=== PATIENT | male | born 1955 | race Caucasian/White ===

== ENCOUNTER 2022-09-03 21:34 | Emergency (ER) | payer OTHER ==
[2022-09-03] MEDS ORDERED: Ondansetron 4 MG Tab.DIS PO ONE (21:35)
[2022-09-03] MEDS: HYDROmorphone 1 MG/ML Syringe IVPUSH ONE (22:05)
[2022-09-03] MEDS: Ondansetron 4 MG/2 ML SDV IVPUSH ONE (22:05)
[2022-09-03 22:20] LABS: ANION GAP 11.7 mEq/L (7-13); CHLORIDE,CL 106 mmol/L (98-107); SODIUM,NA 142 mmol/L (136-145)
[2022-09-03 22:26] LABS: ESTIMATED GFR 60 mL/min (>=60)
[2022-09-03] MEDS ORDERED: Iopamidol 612 MG/ML 100 ML Bottle IVPUSH ONE (22:38)
[2022-09-03 23:16] LABS: CORONAVIRUS COVID-19 NAA NEGATIVE (NEGATIVE); RESPIRATORY SYNCYTIAL VIR NAA NEGATIVE (NEGATIVE)
[2022-09-04] MEDS: Ondansetron 4 MG Tab.DIS ONE (00:07)
== END 2022-09-04 00:22 | disposition home or self-care (01) ==
LOC: DL.ED 21:34
DX: K80.71 Calculus of gallbladder and bile duct without cholecystitis with obstruction (principal); N20.0 Calculus of kidney; K57.32 Diverticulitis of large intestine without perforation or abscess without bleeding; M51.36 Other intervertebral disc degeneration, lumbar region; Z88.1 Allergy status to other antibiotic agents; Z79.899 Other long term (current) drug therapy; Z20.822 Contact with and (suspected) exposure to COVID-19
CPT/HCPCS: 0241U; 36415; 71045; 74177; 80053; 82150; 83605; 83690; 84484; 85025; 86140; 93005; 93010; 96374; 96375; 99284; 99285-25; A9270-GY; J1170; J2405

== ENCOUNTER 2025-08-06 08:03 | Emergency (ER) | payer OTHER ==
[2025-08-06] MEDS ORDERED: fentaNYL 100 MCG/2 ML SDV IVPUSH PRN (08:24)
[2025-08-06] MEDS: Ketorolac 30 MG/ML SDV IVPUSH ONE (08:32)
[2025-08-06] MEDS: Ondansetron 4 MG/2 ML SDV IVPUSH ONE (08:33)
[2025-08-06 08:34] LABS: BASOPHILS PERCENT AUTO 0.6 % (0.0-1.0); EOSINOPHILS PERCENT AUTO 0.6 % (1.0-3.0); LYMPHOCYTES PERCENT AUTO 17.1 % (20.5-50.1); MONOCYTES PERCENT AUTO 6.5 % (2-8); NEUTROPHILS PERCENT AUTO 75.2 % (42.2-75.2); PLATELET COUNT,PLT 156 10^3/uL (150-450); RED BLOOD CELL COUNT 5.29 10^6/uL (4.6-6.2); WHITE BLOOD CELL COUNT,WBC 6.3 10^3/uL (5.0-10.0)
[2025-08-06 08:45] LABS: A/G RATIO 0.9; ALANINE AMINOTRANSFERASE,ALT 30.0 U/L (16-63); ASPARTATE AMNIOTRANSFERASE,AST 22.0 U/L (15-37); BILIRUBIN TOTAL 0.5 mg/dL (0.2-1.0); BLOOD UREA NITROGEN,BUN 14.0 mg/dL (7-18); CARBON DIOXIDE,CO2 28.0 mmol/L (21-32); CHLORIDE,CL 104.0 mmol/L (98-107); CREATININE 1.63 mg/dL (0.70-1.30); EST CRCL DRUG DOSING (CG) 39.43 mL/min; ESTIMATED GFR 45.0 mL/min (>=60); GLUCOSE RANDOM 210.0 mg/dL (70-99); POTASSIUM,K 4.0 mmol/L (3.5-5.1); PROTEIN TOTAL,TP 8.1 g/dL (6.4-8.2); SODIUM,NA 142.0 mmol/L (136-145)
[2025-08-06 08:47] LABS: LACTIC ACID 2.8 mmol/L (0.4-2.0)
[2025-08-06 09:21] LABS: APPEARANCE,URINE CLEAR (CLEAR); GLUCOSE,URINE NEGATIVE (NEGATIVE); OCCULT BLOOD,URINE MODERATE (NEGATIVE)
[2025-08-06 09:30] LABS: EPITHELIAL CELLS,URINE FEW /HPF (NOT SEEN)
== END 2025-08-06 10:42 | disposition home or self-care (01) ==
LOC: DL.ED 08:03
DX: N23 Unspecified renal colic (principal); I10 Essential (primary) hypertension; Z88.1 Allergy status to other antibiotic agents
CPT/HCPCS: 36415; 74176; 80053; 81001; 83605; 83735; 84484; 85025; 93005; 96361; 96374; 96375; 99284; J1885; J2405; J7030; 93010